=== PATIENT | male | born 1990 | race African-American/Black ===

== ENCOUNTER 2017-05-30 19:44 | Emergency (ER) | payer SELFPAY ==
[~2017-05-30] VITALS: Ht 185.4 cm; Wt 136.4 kg
[2017-05-30] MEDS ORDERED: HTN MED PO (19:57)
[2017-05-30] MEDS ORDERED: PERTUSS(ACELL),DIPH,TET VAC/PF 0.5 ML VIAL IM ONE (20:30)
[2017-05-30 21:21] VITALS: BP 137/89
== END 2017-05-30 21:22 | disposition home or self-care (01) ==
LOC: EMS 19:45
DX: M25.511 Pain in right shoulder (principal); I10 Essential (primary) hypertension; F17.210 Nicotine dependence, cigarettes, uncomplicated; F12.10 Cannabis abuse, uncomplicated
CPT/HCPCS: 90471; 90715; 93005; 99284